=== PATIENT | female | born 1955 | race African-American/Black ===

== ENCOUNTER 2018-05-07 19:00 | Emergency (ER) | payer BC ==
[2018-05-07 19:18] VITALS: TEMP 98.2; BMI 26.5
[2018-05-07] MEDS ORDERED: RANITIDINE HCL 150 MG TABLET (FP) PO ONE (21:14)
[2018-05-07] MEDS ORDERED: diphenhydrAMINE HCL 25 MG CAPSULE (FP) PO ONE ×3 (21:14→21:32)
--- NOTE | 2018-05-07 21:19 | PDOC ---
History of Present Illness - General Chief Complaint: Allergic Reaction Stated Complaint: FOLLOW UP Time Seen by Provider: 05/07/18 20:20 History Source: Patient Exam Limitations: No Limitations - History of Present Illness Initial Comments: 05/07/18 21:15 HISTORY OF PRESENT ILLNESS: This is a 63-year-old woman with past medical history of hypertension and colitis who presents emergency department for evaluation of skin redness and itching after receiving IV contrast yesterday. Patient was sent in by her GI doctor for a CAT scan with and without IV contrast and urogram for hematuria which was performed yesterday afternoon. Approximately one hour after receiving the IV contrast patient noted she became fatigued and increasingly tired. Patient also with complaints of rash itching and redness to skin under her breasts, bilateral groin and between the buttocks. Patient denies any respiratory difficulty, drooling, vocal changes. No recent travel or sick contacts. PAST MEDICAL HISTORY: see HPI SURGICAL HISTORY: Denies ALLERGIES: egg REVIEW OF SYSTEMS General/Constitutional: Denies fever or chills. Denies weakness, weight change. (+)fatigue HEENT: Denies change in vision. Denies ear pain or discharge. Denies sore throat. Cardiovascular: Denies chest pain or shortness of breath. Respiratory: Denies cough, wheezing, or hemoptysis. Gastrointestinal: Denies nausea, vomiting, diarrhea or constipation. Denies rectal bleeding. Genitourinary: Denies dysuria, frequency, or change in urination. Musculoskeletal: Denies joint or muscle swelling or pain. Denies neck or back pain. Skin and breasts: see HPI Neurologic: Denies headache, vertigo, loss of consciousness, or loss of sensation. Psychiatric: Denies depression or anxiety. Endocrine: Denies increased thirst. Denies abnormal weight change. Hematologic/Lymphatic: Denies anemia, easy bleeding, or history of blood clots. Allergic/Immunologic: Denies hives or skin allergy. Denies latex allergy. PHYSICAL EXAM General Appearance: Well-appearing, appropriately dressed. No apparent distress , no intoxication. HEENT: EOMI, PERRLA, normal ENT inspection, normal voice, TMs normal. No conjunctival pallor. No photophobia, scleral icterus. Oropharynx mildly erythematous with cobblestoning present in the posterior aspect. Neck: Supple. Trachea midline. No tenderness, rigidity, carotid bruit, stridor , lymphadenopathy, or thyromegaly. Respiratory/Chest: Lungs CTAB. No shortness of breath, chest tenderness, respiratory distress, accessory muscle use. No crackles, rales, rhonchi, stridor , wheezing, dullness Cardiovascular: RRR. S1, S2. No JVD, murmur, bradycardia, tachycardia. Vascular Pulses: Dorsalis-Pedis (R): 2+, Dorsalis-Pedis (L): 2+ Gastrointestinal/Abdominal: Normal bowel sounds. Abdomen soft, non-distended. No tenderness or rebound tenderness. No organomegaly, pulsatile mass, guarding, hernia, hepatomegaly, splenomegaly. Lymphatic: No adenopathy, tenderness. Musculoskeletal/Extremities: Normal inspection. FROM of all extremities, normal capillary refill. Pelvis Stable. No CVA tenderness. No tenderness to extremities, pedal edema, swelling, erythema or deformity. Integumentary: Pruritic raised erythema present on the bilateral breasts, bilateral groin and between the buttocks. 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 Fully oriented, alert. Appropriate mood/affect. Motor strength 5/5. No appreciable EOM palsy, facial droop or sensory deficit. Past History - Past Medical History Allergies/Adverse Reactions: Allergies Allergy/AdvReac Type Severity Reaction Status Date / Time egg Allergy Verified 11/28/13 14:31 Home Medications: Ambulatory Orders Azathioprine [Imuran] 50 mg PO DAILY 11/28/13 Ergocalciferol (Vitamin D2) [Vitamin D] 50,000 unit PO DAILY 11/28/13 Hydrochlorothiazide [Hctz -] 25 mg PO DAILY 11/28/13 Mesalamine [Delzicol] 800 mg PO TID 11/28/13 predniSONE [Deltasone -] 4 mg PO DAILY 11/28/13 Nystatin Powder [Nystop Powder -] 15 gm TP BID #1 bottle 05/07/18 COPD: No GI Disorders: Yes (COLITIS) HTN: Yes - Immunization History Immunization Up to Date: Yes - Suicide/Smoking/Psychosocial Hx Smoking Status: No Smoking History: Never smoked Number of Cigarettes Smoked Daily: 0 Information on smoking cessation initiated: No Hx Alcohol Use: No Drug/Substance Use Hx: No *Physical Exam - Vital Signs Last Vital Signs Temp Pulse Resp BP Pulse Ox 98.2 F 74 20 112/74 99 05/07/18 19:14 05/07/18 19:14 05/07/18 19:14 05/07/18 19:14 05/07/18 19:14 Moderate Sedation - Procedure Monitoring Vital Signs: Procedure Monitoring Vital Signs Temperature 98.2 F 05/07/18 19:14 Pulse Rate 74 05/07/18 19:14 Respiratory Rate 20 05/07/18 19:14 Blood Pressure 112/74 05/07/18 19:14 O2 Sat by Pulse Oximetry (%) 99 05/07/18 19:14 Medical Decision Making - Medical Decision Making 05/07/18 21:18 A/P: 63-year-old woman for evaluation of rash and fatigue Influenza testing Zantac 250 mg orally now Benadryl 25 mg orally now Reassess 05/07/18 22:17 Rash persists after receiving medication. Itching is no longer present. As patient has no respiratory symptoms I will discharge patient home to follow-up with ENT for ALLERGY testing. I will give the patient a prescription for nystatin powder given the distribution of the rash. I discussed the physical exam findings, ancillary test results and final diagnoses with the patient. I answered all of the patient's questions. The patient was satisfied with the care received and felt comfortable with the discharge plan and treatment plan. The patient will call their primary care physician within 24 hours to arrange follow-up and will return to the Emergency Department with any new, persistent or worsening symptoms. *DC/Admit/Observation/Transfer Diagnosis at time of Disposition: Rash - Discharge Dispostion Disposition: HOME Condition at time of disposition: Stable Decision to Admit order: No - Prescriptions Prescriptions: Nystatin Powder [Nystop Powder -] 15 gm TP BID #1 bottle - Referrals Referrals: Naldo Stark [Primary Care Provider] - Maciej Diaz MD [Staff Physician] - - Patient Instructions Additional Instructions: You have been given a referral for Dr. Diaz was in ENT specialist and does ALLERGY testing. Make an appointment for evaluation to rule out IV contrast ALLERGY. Apply nystatin powder to rash twice a day after cleansing the areas. You may take Benadryl or Zyrtec for itching as needed. If he began to experience shortness of breath, drooling, voice changes, scratching in the throat or any other symptoms return to emergency department for reevaluation. - Post Discharge Activity
[2018-05-07] MEDS ORDERED: RANITIDINE HCL 150 MG TABLET (FP) ONE (21:30)
[2018-05-07 22:41] VITALS: BP 117/70; PULSE 86
== END 2018-05-07 22:41 | disposition home or self-care (01) ==
LOC: JER 19:00
DX: R21 Rash and other nonspecific skin eruption (principal); R53.83 Other fatigue
CPT/HCPCS: 87804; 99281-25

== ENCOUNTER 2019-04-13 08:12 | Day surgery (SDC) | payer BC ==
[2019-04-12 09:42] VITALS: BMI 26.5
[2019-04-13 10:34] VITALS: TEMP 98.5
[2019-04-13 10:41] VITALS: PULSE 73
[2019-04-13 11:32] VITALS: BP 107/71
--- NOTE | 2019-04-17 13:45 | PATH ---
Surgical Pathology Report Patient Name: BRITTANY LEWIS [facility]. Rec. #: [id number] /Age/Gender: 1955 (Age: 64) / F Account: [id number] Location: U-ENDOSCOPY Taken: 04/13/2019 Received: 04/13/2019 Reported: 04/17/2019 Physicians: Chester Mendosa M.D. Specimen(s) Received A: 2ND PORTION DUODENAL AND DUODENAL BULB B: ANTRUM C: ILEUM D: CECUM E: RIGHT COLON F: TRANSVERSE COLON G: DESCENDING COLON H: SIGMOID I: RECTUM Clinical History Dyspepsia, epigastric pain, ulcerative colitis surveillance, personal history of carcinoid Postoperative diagnosis: Gastritis, quiescent colitis, hemorrhoids, diverticulosis Final Diagnosis A. SECOND PORTION DUODENUM AND DUODENAL BULB, BIOPSY: DUODENAL MUCOSA WITH FOCAL CHRONIC DUODENITIS. NO HISTOLOGIC EVIDENCE OF INTRAEPITHELIAL LYMPHOCYTOSIS. B. ANTRUM, BIOPSY: GASTRIC MUCOSA WITH CHRONIC GASTRITIS. IMMUNOSTAIN FOR H. PYLORI IS NEGATIVE. NEGATIVE FOR INTESTINAL METAPLASIA. C. ILEUM, BIOPSY: SMALL INTESTINAL MUCOSA WITH REACTIVE LYMPHOID AGGREGATE. NO EVIDENCE OF SIGNIFICANT ARCHITECTURAL DISTORTION, ACTIVE INFLAMMATION OR GRANULOMATOUS INFLAMMATION. NEGATIVE FOR DYSPLASIA. D. CECUM, BIOPSY: COLONIC MUCOSA WITH FOCAL REACTIVE LYMPHOID AGGREGATE. NO EVIDENCE OF SIGNIFICANT ARCHITECTURAL DISTORTION, ACTIVE INFLAMMATION OR GRANULOMATOUS INFLAMMATION. NEGATIVE FOR DYSPLASIA. E. RIGHT COLON, BIOPSY: COLONIC MUCOSA WITH FOCAL REACTIVE LYMPHOID AGGREGATE. NO EVIDENCE OF SIGNIFICANT ARCHITECTURAL DISTORTION, ACTIVE INFLAMMATION OR GRANULOMATOUS INFLAMMATION. NEGATIVE FOR DYSPLASIA. F. TRANSVERSE COLON, BIOPSY: COLONIC MUCOSA WITH FOCAL REACTIVE LYMPHOID AGGREGATE. NO EVIDENCE OF SIGNIFICANT ARCHITECTURAL DISTORTION, ACTIVE INFLAMMATION OR GRANULOMATOUS INFLAMMATION. NEGATIVE FOR DYSPLASIA. G. DESCENDING COLON, BIOPSY: COLONIC MUCOSA WITH FOCAL REACTIVE LYMPHOID AGGREGATE. NO EVIDENCE OF SIGNIFICANT ARCHITECTURAL DISTORTION, ACTIVE INFLAMMATION OR GRANULOMATOUS INFLAMMATION. NEGATIVE FOR DYSPLASIA. H. SIGMOID, BIOPSY: COLONIC MUCOSA WITH FOCAL REACTIVE LYMPHOID AGGREGATE. NO EVIDENCE OF SIGNIFICANT ARCHITECTURAL DISTORTION, ACTIVE INFLAMMATION OR GRANULOMATOUS INFLAMMATION. NEGATIVE FOR DYSPLASIA. I. RECTUM, BIOPSY: COLONIC MUCOSA WITH NO SIGNIFICANT PATHOLOGIC CHANGE. NO EVIDENCE OF SIGNIFICANT ARCHITECTURAL DISTORTION, ACTIVE INFLAMMATION OR GRANULOMATOUS INFLAMMATION. NEGATIVE FOR DYSPLASIA. Electronically Signed Supriya Browning M.D. Gross Description A. Received in formalin, labeled "biopsy second portion of duodenum and duodenal bulb" are 3 montes, irregular portions of soft tissue ranging from 0.3-0.6 cm. in greatest dimension. The specimens are submitted in toto in one cassette. B. Received in formalin, labeled "biopsy antrum" are 4 montes, irregular portions of soft tissue ranging from 0.3-0.5 cm. in greatest dimension. The specimens are submitted in toto in one cassette. C. Received in formalin, labeled "biopsy ileum" are 2 montes, irregular portions of soft tissue measuring 0.3 and 0.4 cm. in greatest dimension. The specimens are submitted in toto in one cassette. D. Received in formalin, labeled "biopsy cecum" are 5 montes, irregular portions of soft tissue ranging from 0.2-0.5 cm. in greatest dimension. The specimens are submitted in toto in one cassette. E. Received in formalin, labeled "biopsy right colon" are 4 montes, irregular portions of soft tissue ranging from 0.2-0.5 cm. in greatest dimension. The specimens are submitted in toto in one cassette. F. Received in formalin, labeled "biopsy transverse colon" are 4 montes, irregular portions of soft tissue ranging from 0.3-0.5 cm. in greatest dimension. The specimens are submitted in toto in one cassette. G. Received in formalin, labeled "biopsy descending colon" are 4 montes, irregular portions of soft tissue ranging from 0.3-0.4 cm. in greatest dimension. The specimens are submitted in toto in one cassette. H. Received in formalin, labeled "biopsy sigmoid" are 6 montes, irregular portions of soft tissue ranging from 0.1-0.3 cm. in greatest dimension. The specimens are submitted in toto in one cassette. I. Received in formalin, labeled "biopsy rectum" are 4 montes, irregular portions of soft tissue ranging from 0.3-0.4 cm. in greatest dimension. The specimens are submitted in toto in one cassette. DL04/13/2019 saudi04/13/2019
== END 2019-04-13 11:07 | disposition home or self-care (01) ==
LOC: JASU-ENDO 08:12
PROVIDERS: ATTEND Internal Medicine Gastroenterology
PROC: 0DB98ZX Excision of Duodenum, Via Natural or Artificial Opening Endoscopic, Diagnostic (ICD-10-PCS; 2019-04-13)
PROC: 0DB68ZX Excision of Stomach, Via Natural or Artificial Opening Endoscopic, Diagnostic (ICD-10-PCS; 2019-04-13)
PROC: 0DBB8ZX Excision of Ileum, Via Natural or Artificial Opening Endoscopic, Diagnostic (ICD-10-PCS; principal; 2019-04-13 09:00)
DX: Z12.11 Encounter for screening for malignant neoplasm of colon (principal); K64.8 Other hemorrhoids; K57.30 Diverticulosis of large intestine without perforation or abscess without bleeding; K51.80 Other ulcerative colitis without complications; K29.50 Unspecified chronic gastritis without bleeding
CPT/HCPCS: 88305-TC

== ENCOUNTER 2020-12-24 04:52 | Day surgery (SDC) | payer BC ==
[2020-12-22 13:52] VITALS: BMI 26.4
[2020-12-24 09:22] VITALS: TEMP 97.7
[2020-12-24] MEDS ORDERED: ACETAMINOPHEN 325 MG TABLET (FP) ONE (09:46)
[2020-12-24] MEDS ORDERED: ACETAMINOPHEN 325 MG TABLET (FP) PO ONE (10:00)
[2020-12-24 11:24] VITALS: BP 109/75; PULSE 73
== END 2020-12-24 11:25 | disposition home or self-care (01) ==
LOC: JASU-ENDO 04:52
PROVIDERS: ATTEND Internal Medicine Gastroenterology
PROC: 0DBN8ZX Excision of Sigmoid Colon, Via Natural or Artificial Opening Endoscopic, Diagnostic (ICD-10-PCS; 2020-12-24)
PROC: 0DBP8ZX Excision of Rectum, Via Natural or Artificial Opening Endoscopic, Diagnostic (ICD-10-PCS; 2020-12-24)
PROC: 0DBF8ZX Excision of Right Large Intestine, Via Natural or Artificial Opening Endoscopic, Diagnostic (ICD-10-PCS; 2020-12-24)
PROC: 0DBM8ZX Excision of Descending Colon, Via Natural or Artificial Opening Endoscopic, Diagnostic (ICD-10-PCS; 2020-12-24)
PROC: 0DBH8ZX Excision of Cecum, Via Natural or Artificial Opening Endoscopic, Diagnostic (ICD-10-PCS; principal; 2020-12-24 08:57)
DX: Z12.11 Encounter for screening for malignant neoplasm of colon (principal); K62.89 Other specified diseases of anus and rectum; K51.90 Ulcerative colitis, unspecified, without complications

== ENCOUNTER 2021-10-26 06:52 | Emergency (ER) | payer BC ==
[2021-10-26 07:24] VITALS: BMI 23.6
[2021-10-26] MEDS ORDERED: SODIUM CHLORIDE 0.9% 500 ML INFUS.BAG IV ONE (08:36)
[2021-10-26] MEDS ORDERED: MECLIZINE HCL 25 MG TABLET (FP) PO ONE ×2 (08:36→10:24)
[2021-10-26] MEDS ORDERED: MECLIZINE HCL 25 MG TABLET (FP) ONE ×2 (08:39→10:41)
[2021-10-26 09:08] LABS: BASO % 0.1 % (0-2.0); EOS % 0.3 % (0-4.5); HEMATOCRIT 37.4 % (32.4-45.2); HEMOGLOBIN 12.5 GM/dL (10.7-15.3); LYMPH % 9.9 % (8-40); MCH 27.1 pg (25.7-33.7); MCHC 33.4 g/dl (32.0-36.0); MEAN CELL VOLUME 81.1 fl (80-96); MEAN PLT VOLUME 7.8 fl (7.5-11.1); MONO % 5.2 % (3.8-10.2); NEUT % 84.5 % (42.8-82.8); PLATELET COUNT 326 10^3/uL (134-434); RBC 4.62 M/mm3 (3.60-5.2); RDW 14.5 % (11.6-15.6); WHITE BLOOD COUNT 8.6 K/mm3 (4.0-10.0)
[2021-10-26 09:30] LABS: BLOOD UREA NITROGEN 15.7 mg/dL (7-18); CALCIUM 9.6 mg/dL (8.5-10.1)
[2021-10-26 09:33] LABS: CREATININE 0.7 mg/dL (0.55-1.3)
[2021-10-26 09:35] LABS: BILIRUBIN,TOTAL 0.7 mg/dL (0.2-1)
[2021-10-26 11:57] VITALS: BP 121/82; PULSE 88; RESP 18; TEMP 98
== END 2021-10-26 12:21 | disposition home or self-care (01) ==
LOC: JER 06:52
DX: R42 Dizziness and giddiness (principal)
CPT/HCPCS: 0241U-QW; 36415; 80053; 85025; 99284-25